=== PATIENT | male | born 1970 | race Caucasian/White ===

== ENCOUNTER 2017-07-24 00:13 | Emergency (ER) | payer MEDICARE ==
[~2017-07-24] VITALS: Ht 180.3 cm; Wt 141.8 kg
[~2017-07-24 00:13] MED LIST: BACTRIM 400 MG-1 TAB PO; CEPHALEXIN500 M1 PO; LORTAB 5/500 501 TAB PO; NO HOME MEDICATIONS; ULTRAM50 MG PO; blood pressure med
[2017-07-24 00:18] VITALS: BP 152/87; PULSE 71; TEMP 98
[2017-07-24] MEDS ORDERED: PERCOCET 325 MG1 TA2 PO (01:52)
== END 2017-07-24 02:10 | disposition home or self-care (01) ==
LOC: COL.ER 00:13
DX: S62.324A Displaced fracture of shaft of fourth metacarpal bone, right hand, initial encounter for closed fracture (principal); W54.0XXA Bitten by dog, initial encounter

== ENCOUNTER 2018-01-22 21:27 | Emergency (ER) | payer MEDICARE ==
[~2018-01-22] VITALS: Ht 177.8 cm; Wt 144.5 kg
[~2018-01-22 21:27] MED LIST changes: +PERCOCET 325 MG1 TA2 PO
[2018-01-22 21:38] VITALS: BP 133/71; TEMP 98.2
[2018-01-22 23:11] VITALS: PULSE 54
== END 2018-01-22 23:11 | disposition home or self-care (01) ==
LOC: COL.ER 21:27
DX: S51.812A Laceration without foreign body of left forearm, initial encounter (principal); F17.228 Nicotine dependence, chewing tobacco, with other nicotine-induced disorders; W26.0XXA Contact with knife, initial encounter; Y92.009 Unspecified place in unspecified non-institutional (private) residence as the place of occurrence of the external cause

== ENCOUNTER 2018-02-01 11:03 | Emergency (ER) | payer MEDICARE ==
[2018-02-01 11:07] VITALS: PULSE 84
== END 2018-02-01 11:18 | disposition home or self-care (01) ==
LOC: COL.ER 11:03
DX: Z48.02 Encounter for removal of sutures (principal)

== ENCOUNTER → 2018-05-08 | Outpatient (REF) | LOC: ZLAB.WCH 08:32 | DX: Z01.89 Encounter for other specified special examinations (principal) ==

== ENCOUNTER 2021-11-01 23:01 | Emergency (ER) | payer MEDICARE ==
[~2021-11-01] VITALS: Ht 177.8 cm; Wt 131.4 kg
[2021-11-02 00:33] VITALS: TEMP 98.1
[2021-11-02 01:35] LABS: CALCIUM 9.4 mg/dL (8.4-10.2); CREATININE, serum 1.07 mg/dL (0.72-1.25); POTASSIUM 4.1 mmol/L (3.5-4.5)
[2021-11-02] MEDS ORDERED: NORCO 325 MG-51 TAB PO (02:30)
[2021-11-02] MEDS ORDERED: CLEOCIN HC150 MG/CAP PO (02:30)
[2021-11-02 02:49] VITALS: BP 141/83; PULSE 91
== END 2021-11-02 02:52 | disposition home or self-care (01) ==
LOC: COL.ER 23:01
PROVIDERS: Emergency Medicine
DX: K05.219 Aggressive periodontitis, localized, unspecified severity (principal); K02.9 Dental caries, unspecified
CPT/HCPCS: J2270; J2405; Q9967